=== PATIENT | female | born 1955 | race Caucasian/White ===

== ENCOUNTER → 2020-04-07 10:20 | Outpatient (CLI) | payer BC, SELFPAY ==
--- NOTE | ~2020-04-07 | US_ITS ---
EXAMINATION: US pelvic complete w TV DATE: 04/07/2020 10:56 INDICATION: Pelvic pain. Abdominal distention. Left lower quadrant pain. Gas. Comparison:No prior studies for comparison. TECHNIQUE: Multiple transabdominal and endovaginal sonographic images of the pelvis performed. FINDINGS: The uterus measures 5.4 x 2 x 3.5 cm. There is a uterine fibroid at the fundus measuring 1. 5 cm. The endometrial complex measures 2 mm. The ovaries are not visualized. No adnexal masses or fluid collections. There is no free fluid in the pelvis. There are no abnormal masses seen on either side. IMPRESSION: 1. Uterine fibroid at the fundus measuring 1.5 cm maximum dimension. Reviewed, dictated and finalized at location A.
== END ==
PROVIDERS: Visit Provider Nurse Practitioner Women's Health
DX: R14.0 Abdominal distension (gaseous) (principal); D25.9 Leiomyoma of uterus, unspecified
CPT/HCPCS: 76830; 76856

== ENCOUNTER → 2020-05-10 14:04 | Outpatient (CLI) | payer BC, SELFPAY ==
--- NOTE | ~2020-05-10 | CT_ITS ---
EXAMINATION: CT abdomen pelvis wo con DATE: 05/10/2020 14:50 INDICATION: Abdominal distention, left lower quadrant pain TECHNIQUE: Computed tomography (CT) of the abdomen and pelvis was performed without intravenous contr ast. The dose-length product (DLP) was 429.88 mGy-cm. Automated exposure control and iterative recons truction technique were employed. COMPARISON: None FINDINGS: The lung bases are clear. The heart size is normal. There is a small sliding hiatal hernia. The liver, spleen, pancreas, gallbladder, and adrenal glands are normal. A tiny hyperdense lesion in the left kidney upper pole is too small to characterize but likely represents a hemorrhagic cyst. Th ere is a 10 mm cyst of the right kidney. A 3 mm nonobstructing stone is present in the left kidney lo wer pole. There are at least four nonobstructing right kidney stones, the largest of which measures 3 mm. No pathologically enlarged abdominal or pelvic lymph nodes are identified. There is no free intr aperitoneal gas or evidence of bowel obstruction. There is a moderate amount of ingested material in the stomach. There are bilateral L5 pars defects with grade 1 anterolisthesis of L5 on S1. A tiny fat -containing umbilical hernia is noted. A bone island is present in the left sacrum. IMPRESSION: 1. No CT correlate for the patient's symptoms. 2. Bilateral nonobstructing nephrolithiasis. Reviewed, dictated and finalized at location A.
== END ==
DX: R10.32 Left lower quadrant pain (principal); R14.0 Abdominal distension (gaseous); N20.0 Calculus of kidney
CPT/HCPCS: 74176

== ENCOUNTER 2023-07-17 13:35 | Emergency (ER) | payer MEDICARE, OTHER, SELFPAY ==
--- NOTE | ~2023-07-17 | XR_ITS ---
EXAMINATION: XR wrist RT min 3V INDICATION: Right wrist pain, initial encounter TECHNIQUE: Four views of the right wrist are obtained. COMPARISON: None available FINDINGS: There is an acute, traumatic, closed, comminuted intra-articular fracture at the distal rad ius. There is an acute transverse ulnar styloid avulsion. No additional fracture is identified. There is mild dorsal angulation of the distal radius at the fracture site. Soft tissue swelling surrounds the fractures. IMPRESSION: 1. Comminuted intra-articular fracture of the distal radius. 2. Ulnar styloid avulsion. Reviewed, dictated and finalized at location B. ENGINEER
[2023-07-17 13:36] VITALS: BP 145/73; PULSE 87; RESP 18; TEMP 36.6; O2SAT 99
--- NOTE | 2023-07-17 14:47 | ED.UPPEXIN ---
HPI - Extremity Injury (Upper) General Chief Complaint: Extremity Injury, Upper Stated Complaint: Right Wrist Deformity Time Seen by Provider: 07/17/23 14:44 Source: patient Limitations: no limitations History of Present Illness HPI narrative: This is a 67-year-old female presents with right wrist pain after an ice skating injury. She denies a direct fall on outstretched hand. Rather, she was skating and fell on her left with her hand going up behind her head and striking the ice behind her. Related Data Home Medications Medication Instructions Recorded Confirmed metformin 500 mg tablet 500 mg PO DAILY 07/24/23 07/24/23 rosuvastatin 10 mg tablet 10 mg PO DAILY 07/24/23 07/24/23 Allergies Allergy/AdvReac Type Severity Reaction Status Date / Time gadobenic acid Allergy Unconscious Verified 07/24/23 08:32 [From contrast - MRI] iohexol Allergy Unconscious Verified 07/24/23 08:32 [From contrast - CT, X-RAY] ON LICENSE OF [facility] Social History Social History (Updated 07/23/23 @ 10:19 by Yu Herrera MA) Smoking status: Never smoker Alcohol intake: current Alcohol use details: 2/MONTH Substance use: never Substance use type: does not use Living arrangements: alone Occupation/Education: retired Additional occupation/education comments: [employer] Gender identity (if verbalized by the patient): Female Spiritual care concerns: No Exam Narrative: GENERAL: Well-appearing, well-nourished, and in no acute distress. HEAD: Normocephalic, atraumatic. EYES: Non injected, non icteric ENT: Nares clear, no rhinorrhea or epistaxis. NECK: Supple. CHEST: Speaking in complete sentences. No respiratory distress. HEART: Regular rate and rhythm. Extremity warm and well perfused. Brisk capillary refill. EXTREMITIES: Edema overlying wrist with deformity. No skin tear. Able to perform simple movements but not full flexion/extension limited to pain. SKIN: Warm, dry, no rash. NEURO: Alert and oriented x3. Sensation intact in affected extremity. PSYCH: Normal mood and affect. Course Vital Signs Vital signs: Vital Signs Temperature 97.9 F 07/17/23 13:36 Pulse Rate 87 07/17/23 13:36 Respiratory Rate 18 07/17/23 13:36 Blood Pressure 145/73 H 07/17/23 13:36 Pulse Oximetry 99 12/22/23 13:36 Oxygen Delivery Room Air 07/17/23 13:36 Temperature 97.9 F 07/17/23 13:36 Pulse Rate 87 07/17/23 13:36 Respiratory Rate 18 07/17/23 13:36 Blood Pressure 145/73 H 07/17/23 13:36 Pulse Oximetry 99 07/17/23 13:36 Oxygen Delivery Room Air 07/17/23 13:36 MDM - Extremity Injury (Upper) MDM Narrative Medical decision making narrative: This is a 67-year-old female who fell from her blood while ice-skating and her right arm dipika above her head and hit the ice. In the ED she is afebrile with appropriate vital signs. Patient given acetaminophen for pain. Does not want anything stronger as she wants to be able to drive downtown to the [employer] in [facility] to see the [employer] with her grand-daughter. Fractures seen on plain film imaging as below. Volar splint applied by nurse. Patient stable for discharge. Re-examined by myself after and remains neurovascularly intact with sensation intact, ability to move fingers, and brisk capillary refill. Difficulty electronically transmitting opiate prescription or printing from computer. Attempted to call Rx in but am advised will need Rx; hand written copy of Rx provided to patient. Differential Diagnosis Differential diagnosis: Likely sprain and strain of wrist, fracture of wrist and Colles' fracture Imaging Data Attestation: I personally reviewed and interpreted this imaging study as follows: My impression: Concur with fracture though not significantly displaced Radiologist's impression: Impressions Wrist X-Ray 07/17/23 13:51 IMPRESSION: 1. Comminuted intra-articular fracture of the distal radius. 2. Ulnar styloid avulsion
[2023-07-17] MEDS: ACETAMINOPHEN 500 MG TABLET 1000 MG PO (14:56)
== END 2023-07-17 16:29 | disposition home or self-care (01) ==
PROVIDERS: Emergency Provider Student in an Organized Health Care Education/Training Program
DX: S52.571A Other intraarticular fracture of lower end of right radius, initial encounter for closed fracture (principal); S52.611A Displaced fracture of right ulna styloid process, initial encounter for closed fracture; V00.211A Fall from ice-skates, initial encounter
CPT/HCPCS: 29125; 73110; 99284; A4565; A9270

== ENCOUNTER 2023-07-24 09:26 | Outpatient (CLI) | payer MEDICARE, OTHER, SELFPAY ==
--- NOTE | 2023-07-24 09:44 | ECG_ITS ---
Measurements Intervals [place] Rate: 77 P: 39 LA: 146 QRS: -23 QRSD: 93 T: 47 QT: 377 QTc: 429 Interpretive Statements SINUS RHYTHM WITH SINUS ARRHYTHMIA BORDERLINE LEFT AXIS DEVIATION [QRS AXIS < -20] NONSPECIFIC T-WAVE ABNORMALITY NO PREVIOUS ECG AVAILABLE FOR COMPARISON Electronically Signed On 07-24-2023 16:36:26 RECEIVING COORDINATOR by Andreas Cabrera M.D.
[2023-07-24 10:39] LABS: Anion Gap 7 mmol/L (8-16); Blood Urea Nitrogen 17 mg/dL (7-17); Calcium 9.2 mg/dL (8.4-10.2); Carbon Dioxide 28 mmol/L (22-30); Chloride 106 mmol/L (98-107); Estimated Glomerular Filt Rate > 60; Glucose 106 mg/dL (65-110); Potassium 4.6 mmol/L (3.4-5.0); Sodium 141 mmol/L (137-145)
== END 2023-07-24 09:27 | disposition home or self-care (01) ==
LOC: ANHSURGERY 09:32
PROVIDERS: Anesthesiology; Visit Provider Orthopaedic Surgery
DX: R73.03 Prediabetes (principal); E78.5 Hyperlipidemia, unspecified; I49.8 Other specified cardiac arrhythmias
CPT/HCPCS: 36415; 80048; 93005

== ENCOUNTER 2023-07-29 00:21 | Day surgery (SDC) | payer MEDICARE, OTHER, SELFPAY ==
[2023-07-24 08:34] VITALS: BMI 24.7
--- NOTE | 2023-07-24 08:45 | PC.NURSE ---
Report to the Outpatient Waiting Room, entrance under the green pavilion located off [facility], at time 11:30 on date 07/29/23. Planned Procedure Time: 1:30. Time changes happen often and if your time is changed the preop area will call you the afternoon before. - You and your visitor will be asked to self-screen and do not enter if you have any COVID symptoms. - A mask is optional within the hospital at this time. Patients may have clear liquids (water, carbonated beverages, clear teas, apple juice) until 3 hours prior to surgery (10:30) with a maximum of 20 ounces. - No food from midnight until time of surgery Take the following medications with a SIP of water the morning of surgery: PAIN PILL IF NEEDED DO NOT STOP ANY OF YOUR OTHER PRESCRIPTION MEDICATIONS PRIOR TO SURGERY ?EXCEPT THE FOLLOWING Medications to discontinue per physician: N/A Date to take last dose: N/A Please no make-up, nail pashto, hairspray, perfume, deodorant, or body powder the day of surgery. No jewelry (including any body piercings) or valuables the day of surgery, leave them at home. Please take a shower or bath the night before, or the morning of, surgery with an antibacterial soap. Wear comfortable, loose fitting clothing. - Jewelry must be removed prior to entering the operating room. Rings and piercings that are not removed may be cut off. - The hospital will not accept responsibility for valuables. - Please leave all valuables, including medications, at home the day of surgery. If you are going home after surgery, a licensed drivers license examiner must drive you home. - NO public transportation without another adult if you receive anesthesia. - We recommend that an adult stay with you for 24 hours following discharge. - We also recommend that you do not drive, make important decision, drink alcoholic beverages, or take any drugs that were not prescribed by your health care provider for at least 24 hours after your discharge time. Follow any additional instructions given to you from your surgeon. If you or anyone in your household have experienced Covid symptoms in the past week, please notify your surgeon or the nurse liaison at the phone number below for possible testing. Telephone instructions given to PT - DEANDRA WRIGHT and asked if any additional questions and then verbalized understanding. Patient advised to call surgeon office or pre surgery nurse liaison [phone] if any additional questions.
[2023-07-29] VITALS (8 sets, daily range): BP systolic 138–159; BP diastolic 68–93; PULSE 78–83; RESP 10–23; TEMP 36.3–37.1; O2SAT 93–100
--- NOTE | ~2023-07-29 | XR_ITS ---
EXAMINATION: XR surgery orthopedic DATE: 07/29/2023 14:32 INDICATION: ORIF right wrist fracture TECHNIQUE: 4 fluoroscopic images of the right wrist were obtained in varying obliquities during proce dure performed by Dr. Campbell. Radiologist was not present for the imaging or procedure. The amount o f fluoroscopy time used during this procedure was 8.9 minutes. COMPARISON: 07/23/2023 FINDINGS: Interval reduction and volar T plate and screw internal fixation of a comminuted intra-articular frac ture of the distal right radius. Alignment appears near-anatomic. The previously noted avulsion fract ure at the tip of the ulnar styloid process has also been reduced to near-anatomic alignment and leti ins unfixed. There is an expected small amount of intra-articular and soft tissue gas at the right wr ist. 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 IMPRESSION: 1. Near-anatomic alignment post reduction internal fixation of a comminuted intra-articular fracture of the distal right radius. Reviewed, dictated and finalized at location A. RACT ADMINISTRATION SPECIALIST IMPRESSION: 1. Near-anatomic alignment post reduction internal fixation of a comminuted int ra-articular fracture of the distal right radius.
--- NOTE | 2023-07-29 07:17 | WPDHPUPDATE1 ---
History and Physical Update Update Date/Time: 07/29/23 07:17 History and Physical has been reviewed, including an updated exam of the patient. There are NO changes in the patient's condition. Risks, benefits, and alternatives have been discussed and questions answered. Patient agrees to proceed with procedure.
[2023-07-29] MEDS: CELECOXIB 200 MG CAPSULE PO (11:01)
[2023-07-29] MEDS: ACETAMINOPHEN 500 MG TABLET 1000 MG PO (11:01)
[2023-07-29] MEDS: LACTATED RINGERS 1,000 ML 30 ML IV CONT ×2 (11:10→14:59)
[2023-07-29 11:19] LABS: Glucose Point of Care 101 mg/dl (65-105)
[2023-07-29] MEDS: ceFAZolin 2 GM/D5W 50 ML 2 GM/50 ML BAG IVPB (12:42)
[2023-07-29] MEDS: BUPivacaine HCL 0.5% PF 30 ML VIAL 10 ML INFILTRATE (13:14)
[2023-07-29] MEDS: fentaNYL CITRATE INJ (*CRX) 100 MCG/2 ML VIAL 25 MCG IV PUSH ×4 (15:20→15:40)
--- NOTE | 2023-07-29 15:21 | W.PM.PROC2 ---
Procedure Note - Detailed Date of Procedure 07/29/23 Pre-op Diagnosis right distal Radius fracture Post-op Diagnosis Same Procedure Performed ORIF RIGHT DISTAL RADIUS FRACTURE Surgeon Rosalio Campbell MD Anesthesia General Description of Procedure THE RIGHT UPPER EXTREMITY WAS PREPPED AND DRAPED IN THE STERILE FASHION. A STANDARD HENRYS APPROACH WAS USED TO THE VOLAR WRIST. DISSECTION THROUGH THE SKIN AND SUBCUTANEOUS TISSUE WAS PREFORMED. THE FCR TENDON WAS IDENTIFIED. THE RADIAL ARTERY WAS IDENTIFIED AND RETRACTED. THE THE FLEXOR POLLICIS AND THE COMMON FLEXOR TENDONS WERE IDENTIFIED AND RETRACTED. THE PRONATOR QUADRATUS WAS IDENTIFIED AND INCISED EXPOSING THE FRACTURE. IT WAS HIGHLY COMMINUTED. A TRIAL REDUCTION WAS PREFORMED AND FIXED WITH A K WIRE. NEXT A BIOMET DISTAL RADIUS LOCKING PLATE WAS PLACED BRIDGING THE FRACTURE FRAGMENTS. SCREWS WERE PLACED DISTALLY AND PROXIMALLY. THE DISTAL SCREWS WERE IMAGED AND FOUND TO BE EXTRA ARTICULAR. C ARM IMAGES WERE PREFORMED AND HARDWARE AND FRACTURE FRAGMENTS WERE IN GOOD POSITION. THE TOURNIQUET WAS DEFLATED AND THE BLEEDERS WERE CAUTERIZED. THE FASCIA AND SUB CUTANEOUS LAYERS WERE APPROXIMATED WITH 3-0 VICRYL. THE SKIN WAS APPROXIMATED WITH SARAH. STERILE DRESSING AND SPLINT WAS APPLIED. PATIENT WAS EXTUBATED. Estimated Blood Loss 10 Complications No immediate complications Condition Stable Disposition PACU
[2023-07-29 15:30] LABS: Glucose Point of Care 127 mg/dl (65-105)
[2023-07-29] MEDS: oxyCODONE HCL (*CRX) 5 MG TAB IR PO (16:29)
== END 2023-07-29 17:10 | disposition home or self-care (01) ==
PROVIDERS: Visit Provider Orthopaedic Surgery
PROC: (CPT 25575; principal; 2023-07-29 13:30)
DX: S52.571A Other intraarticular fracture of lower end of right radius, initial encounter for closed fracture (principal); V00.211A Fall from ice-skates, initial encounter; Z79.891 Long term (current) use of opiate analgesic
CPT/HCPCS: 25607; 82948; 99199; A9270; C1713; J0690; J1100; J2250; J2405; J2704; J3010; J7120